=== PATIENT | female | born 1950 | race Two or more races ===

== ENCOUNTER 2018-11-23 10:11 | Emergency (ER) | payer MEDICAID ==
[~2018-11-23] VITALS: Ht 149.9 cm; Wt 71.7 kg
[2018-11-23 10:14] VITALS: BP 141/70
== END 2018-11-23 12:25 | disposition home or self-care (01) ==
LOC: ER 10:16
DX: J22 Unspecified acute lower respiratory infection (principal); I10 Essential (primary) hypertension; E11.9 Type 2 diabetes mellitus without complications; E78.00 Pure hypercholesterolemia, unspecified; Z98.890 Other specified postprocedural states; Z88.6 Allergy status to analgesic agent
CPT/HCPCS: 71045-TC